=== PATIENT | male | born 2000 | race African-American/Black ===

== ENCOUNTER 2022-07-23 12:35 | Emergency (ER) | payer OTHER ==
[~2022-07-23] VITALS: Ht 182.9 cm; Wt 84.7 kg
[2022-07-23] MEDS ORDERED: ACETAMINOPHEN 500 MG TAB PO ONE (14:50)
[2022-07-23] MEDS ORDERED: IBUP80TA PO (17:44)
[2022-07-23 17:51] VITALS: BP 134/76
== END 2022-07-23 17:52 | disposition home or self-care (01) ==
LOC: M ED 12:35
DX: S83.91XA Sprain of unspecified site of right knee, initial encounter (principal); X50.0XXA Overexertion from strenuous movement or load, initial encounter; Y92.89 Other specified places as the place of occurrence of the external cause; Y93.61 Activity, american tackle football; Y99.8 Other external cause status; F17.210 Nicotine dependence, cigarettes, uncomplicated